=== PATIENT | female | born 1945 | race Caucasian/White ===

== ENCOUNTER 2016-06-27 07:01 | Emergency (ER) | payer MEDICARE, BC ==
[2016-06-27 07:26] VITALS: BP 153/72
--- NOTE | 2016-06-27 07:51 | EDM.PDOC ---
[id number]: COLD Time Seen by Provider: 06/27/16 07:30 Source: Reports: Patient History Limitations: Reports: No limitations - History of Present Illness INITIAL COMMENTS - FREE TEXT/NARRATIVE: 70-year-old female has had a persistent cough and clear runny nose for the past 3-4 days. She is unsure if she's had fevers, she's had no pain, she is otherwise healthy. She feels like she hasn't slept in 3 nights because of the persistent cough. She tried some [id number] cold medicine and it didn't help much. No nausea or vomiting. Associated Symptoms: Reports: cough. Denies: chest pain, fever/chills, headaches, nausea/vomiting, shortness of breath - Related Data Allergies/ADRs: Allergies Allergy/AdvReac Type Severity Reaction Status Date / Time Sulfa (Sulfonamide Allergy Blisters Verified 06/27/16 07:19 Antibiotics) Home Meds: Home Meds NK [No Known Home Meds] 06/27/16 [History] Past Medical History HEENT History: Reports: Impaired vision YEAST PUMPER History: Reports: - Infectious Disease History Infectious Disease History: Reports: Chicken pox, Measles, Mumps - Past Surgical History GI Surgical History: Reports: Cholecystectomy Social & Family History - Tobacco Use Smoking Status *Q: Current Some Day Smoker Years of Tobacco use: 40 Packs/Tins Daily: 0 Used Tobacco, but Quit: No Second Hand Smoke Exposure: No - Caffeine Use Caffeine Use: Reports: Coffee, Soda - Alcohol Use Days Per Week of Alcohol Use: 0 - Recreational Drug Use Recreational Drug Use: No ED ROS GENERAL - Review of Systems Review Of Systems: See Below HEENT: Reports: Rhinitis Respiratory: Reports: Cough. Denies: Shortness of Breath, Sputum Cardiovascular: Denies: Chest pain GI/Abdominal: Denies: Abdominal pain, Nausea, Vomiting Skin: Reports: no symptoms Neurological: Denies: Headache Psychiatric: Reports: No symptoms ED EXAM, GENERAL - Physical Exam Exam: See Below Exam Limited By: No limitations General Appearance: alert, no apparent distress Eye Exam: bilateral eye: normal inspection Nose: nasal drainage, clear rhinorrhea Throat/Mouth: Normal inspection Neck: No: lymphadenopathy (R), lymphadenopathy (L) Respiratory/Chest: no respiratory distress, lungs clear Cardiovascular: regular rate, rhythm Psychiatric: normal affect, normal mood Skin Exam: Warm, Dry Course - Vital Signs Last Recorded V/S: Last Vital Signs Temp 97.2 F 06/27/16 07:26 Pulse 76 06/27/16 07:26 Resp 16 06/27/16 07:26 BP 153/72 H 06/27/16 07:26 Pulse Ox 91 L 06/27/16 07:26 - Re-Assessments/Exams Free Text/Narrative Re-Assessment/Exam: 06/27/16 07:49 Explained to the patient that this is obviously a viral syndrome with the profuse clear rhinorrhea and persistent dry cough. I supplied her with 15 Tessalon Perles to use 1-2 every 6 hours for cough suppression, encouraged to use a spray decongestant such as Afrin for the next few days and she can call or return in 2-3 days if not improving. Departure - Departure Time of Disposition: 08:01 Disposition: Home, Self-Care 01 Condition: good Clinical Impression: Upper respiratory infection, viral, Viral bronchitis Instructions: Viral Respiratory Infection, [id number] Referrals: PCP,None [Primary Care Provider] - Forms: ED Department Discharge Care Plan Goals: Take cough suppression pills 1-2 every 6 hours as needed, and consider spraying ear nose with Afrin or Dakota-Synephrine for the next few days for congestion. Call on Monday if you're not improving.
== END 2016-06-27 08:02 | disposition home or self-care (01) ==
LOC: JP.ED 07:01
DX: J06.9 Acute upper respiratory infection, unspecified (principal); J20.8 Acute bronchitis due to other specified organisms; F17.210 Nicotine dependence, cigarettes, uncomplicated; Z88.2 Allergy status to sulfonamides; Z90.49 Acquired absence of other specified parts of digestive tract
CPT/HCPCS: 99283